=== PATIENT | female | born 1995 | race Caucasian/White ===

== ENCOUNTER 2018-03-21 17:44 | Emergency (ER) | payer OTHER ==
[~2018-03-21] VITALS: Ht 167.6 cm; Wt 74.8 kg
[2018-03-21 18:53] LABS: BILIRUBIN,URINE NEGATIVE (NEGATIVE); CLARITY,URINE SLIGHTLY CLOUDY; COLOR,URINE YELLOW; GLUCOSE, URINE (UA) NEGATIVE (NEGATIVE); KETONES,URINE 4+ (NEGATIVE); LEUKOCYTE ESTERASE ,URINE 3+ (NEGATIVE); NITRITE,URINE POSITIVE (NEGATIVE); PH,URINE 5 (5-9); PROTEIN,URINE 3+ (NEGATIVE); UROBILINOGEN,URINE NORMAL (NORMAL)
[2018-03-21 19:04] LABS: BACTERIA,URINE LARGE /HPF; RBC,URINE 25-50 /HPF; WBC,URINE >100 /HPF
[2018-03-21] MEDS ORDERED: ONDANSETRON 4 MG/2 ML (SDV) Z0FRAN IV PRN (19:15)
--- NOTE | 2018-03-21 19:21 | ED GU-Female ---
General Stated Complaint: FEVER Source: patient, spouse Exam Limitations: no limitations History of Present Illness Date Seen by Provider: Mar 21, 2018 Time Seen by Provider: 19:10 Initial Comments Patient presents to the ER by private conveyance with his significant other and chief complaint she had a fever 102 today and the past several days she's had some gripping pain around the top of her abdomen. She's had painful urination, weakness tiredness. Not sure when her last period is. 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 She vomited earlier today and still having some nausea. She has not taken anything for the pain. She's not seen anyone else for this. Allergies and Home Medications Allergies Coded Allergies: cat dander (Verified Allergy, Unknown, 03/21/18) nickel (Verified Allergy, Unknown, 03/21/18) Patient Home Medication List Home Medication List Reviewed: Yes Review of Systems Review of Systems Constitutional: chills; No diaphoresis; fever, malaise EENTM: No ear discharge, No ear pain Respiratory: No cough, No short of breath Cardiovascular: No chest pain, No edema Gastrointestinal: abdominal pain; No constipation, No diarrhea; nausea, vomiting Genitourinary: denies burning, denies discharge; dysuria, flank pain (Right) : No Musculoskeletal: see HPI Past Eqsntgm-Piobbo-Vlwzsb Hx Patient Social History Alcohol Use: Denies Use Recreational Drug Use: No Smoking Status: Never a Smoker Physical Exam Vital Signs Vital Signs - First Documented 03/21/18 19:54 O2 Flow Rate 98.00 Capillary Refill : Height, Weight, BMI Height: '" Weight: lbs. oz. kg; BMI Method: General Appearance: WD/WN, mild distress HEENT: PERRL/EOMI, normal ENT inspection Neck: non-tender, full range of motion Cardiovascular: normal peripheral pulses, regular rate, rhythm, tachycardia Respiratory: no respiratory distress, no accessory muscle use Gastrointestinal: normal bowel sounds, non tender, soft Focused Exam Lactate Level 03/21/18 19:59: Lactic Acid Level 0.61 Lactic Acid Level Laboratory Tests Test 03/21/18 19:59 Lactic Acid Level 0.61 MMOL/L (0.50-2.00) Progress/Results/Core Measures Suspected Sepsis SIRS Temperature: Pulse: Respiratory Rate: Laboratory Tests 03/21/18 19:03: White Blood Count 11.4H Blood Pressure / Mean: 03/21/18 19:59: Lactic Acid Level 0.61 Laboratory Tests 03/21/18 19:03: Creatinine 0.77, INR Comment 1.2, Platelet Count 191, Total Bilirubin 0.7 Results/Orders Lab Results Laboratory Tests Test 03/21/18 18:45 03/21/18 19:03 03/21/18 19:59 Range/Units Urine Color YELLOW Urine Clarity SLIGHTLY CLOUDY Urine pH 5 5-9 Urine Specific [place] 1.015 L 1.016-1.022 Urine Protein 3+ H NEGATIVE Urine Glucose (UA) NEGATIVE NEGATIVE Urine Ketones 4+ H NEGATIVE Urine Nitrite POSITIVE H NEGATIVE Urine Bilirubin NEGATIVE NEGATIVE Urine Urobilinogen NORMAL NORMAL MG/DL Urine Leukocyte Esterase 3+ H NEGATIVE Urine RBC (Auto) 5+ H NEGATIVE Urine RBC 25-50 H /HPF Urine WBC >100 H /HPF Urine Squamous Epithelial Cells 2-5 /HPF Urine Crystals NONE /LPF Urine Bacteria LARGE H /HPF Urine Casts NONE /LPF Urine Mucus NEGATIVE /LPF Urine Culture Indicated YES White Blood Count 11.4 H 4.3-11.0 10^3/uL Red Blood Count 4.28 L 4.35-5.85 10^6/uL Hemoglobin 12.7 11.5-16.0 G/DL Hematocrit 37 35-52 % Mean Corpuscular Volume 87 80-99 FL Mean Corpuscular Hemoglobin 30 25-34 PG Mean Corpuscular Hemoglobin Concent 34 32-36 G/DL Red Cell Distribution Width 13.3 10.0-14.5 % Platelet Count 191 130-400 10^3/uL Mean Platelet Volume 11.9 H 7.4-10.4 FL Neutrophils (%) (Auto) 84 H 42-75 % Lymphocytes (%) (Auto) 6 L 12-44 % Monocytes (%) (Auto) 10 0-12 % Eosinophils (%) (Auto) 0 0-10 % Basophils (%) (Auto) 0 0-10 % Neutrophils # (Auto) 9.6 H 1.8-7.8 X 10^3 Lymphocytes # (Auto) 0.7 L 1.0-4.0 X 10^3 Monocytes # (Auto) 1.1 H 0.0-1.0 X 10^3 Eosinophils # (Auto) 0.0 0.0-0.3 10^3/uL Basophils # (Auto) 0.0 0.0-0.1 10^3/uL Neutrophils % (Manual) 69 % Lymphocytes % (Manual) 9 % Monocytes % (Manual) 5 % Eosinophils % (Manual) 0 % Basophils % (Manual) 0 % Band Neutrophils 17 % Blood Morphology Comment NORMAL Prothrombin Time 14.8 H 12.2-14.7 SEC INR Comment 1.2 0.8-1.4 Activated Partial Thromboplast Time 39 H 24-35 SEC Sodium Level 133 L 135-145 MMOL/L Potassium Level 3.3 L 3.6-5.0 MMOL/L Chloride Level 98 98-107 MMOL/L Carbon Dioxide Level 24 21-32 MMOL/L Anion Gap 11 5-14 MMOL/L Blood Urea Nitrogen 8 7-18 MG/DL Creatinine 0.77 0.60-1.30 MG/DL Estimat Glomerular Filtration Rate > 60 BUN/Creatinine Ratio 10 Glucose Level 108 H 70-105 MG/DL Calcium Level 9.9 8.5-10.1 MG/DL Corrected Calcium 9.5 8.5-10.1 MG/DL Total Bilirubin 0.7 0.1-1.0 MG/DL Aspartate Amino Transf (AST/SGOT) 24 5-34 U/L Alanine Aminotransferase (ALT/SGPT) 23 0-55 U/L Alkaline Phosphatase 93 40-136 U/L Total Protein 7.7 6.4-8.2 GM/DL Albumin 4.5 3.2-4.5 GM/DL Lactic Acid Level 0.61 0.50-2.00 MMOL/L My Orders Orders - ADRY DUPONT Ua Culture If Indicated (03/21/18 18:46) Urine Culture (03/21/18 18:45) Cbc With Automated Diff (03/21/18 19:14) Comprehensive Metabolic Panel (03/21/18 19:14) Blood Culture (03/21/18 19:14) Urinalysis (03/21/18 19:14) Urine Culture (03/21/18 19:14) Protime With Inr (03/21/18 19:14) Partial Thromboplastin Time (03/21/18 19:14) Saline Lock/Iv-Start (03/21/18 19:14) Saline Lock/Iv-Start (03/21/18 19:14) Vital Signs Adult Sepsis Patie Q15M (03/21/18 19:14) Ondansetron Injection (Zofran Injectio (03/21/18 19:15) O2 (03/21/18 19:14) Remove Rings In Anticipation O (03/21/18 19:14) Lactic Acid Analyzer (03/21/18 19:14) Ns Iv 1000 Ml (Sodium Chloride 0.9%) (03/21/18 19:15) Ceftriaxone For Iv Use (Rocephin For I (03/21/18 19:15) Ketorolac Injection (Toradol Injection) (03/21/18 19:15) Hcg,Qualitative Urine (03/21/18 19:21) Ct Abdomen/Pelvis Wo (03/21/18 19:21) Manual Differential (03/21/18 19:03) Medications Given in ED Current Medications Medications Dose Ordered Sig/Carmen Route Start Time Stop Time Status Last Admin Dose Admin Ceftriaxone Sodium 1000 mg/ Sodium Chloride 60 ml @ 100 mls/hr ONCE ONCE IV 03/21/18 19:15 03/21/18 19:50 DC 03/21/18 19:40 100 MLS/HR Ketorolac Tromethamine 15 mg ONCE ONCE IVP 03/21/18 19:15 03/21/18 19:17 DC 03/21/18 19:37 15 MG Sodium Chloride 1,500 ml @ 1,500 mls/hr ONCE ONCE IV 03/21/18 19:15 03/21/18 20:14 DC 03/21/18 19:39 1,500 MLS/HR Vital Signs/I&O 03/21/18 03/21/18 03/21/18 18:45 18:45 19:54 Temp 100.6 100.6 100.6 Pulse 111 111 111 Resp 18 18 18 B/P (MAP) 112/63 (79) 112/63 112/63 (79) Pulse Ox 98 98 98 O2 Flow Rate 98.00 Capillary Refill : Progress Note #1: Time: 19:20 Progress Note Septic workup given her tachycardia and fever. Looks like the urinalysis she has a little red blood cells and white blood cells so we'll look for pyelonephritis versus possible kidney stone. No history of kidney stones we'll get a CT of her abdomen without contrast. We'll give her some Toradol and Zofran for her discomfort and a 1-1/2 L 20 mL/kg bolus of normal saline and reexamined. Rocephin 1 g IV. Progress Note #2: Time: 20:58 Progress Note The patient is feeling much better. Her nausea is gone. Her pain is much improved almost gone now. She's been able to urinate. She still has about 300 cc of saline to go and were going to let her leave with Keflex, Zofran and return precautions. Will she was initially septic by her vital signs her heart rate is down in the 90s and she is feeling much better and would like to go home as opposed to staying in the hospital. An observation stay is offered but declined. Diagnostic Imaging Diagonstic Imaging: CT (c/o contrst) Plain Films/CT/US/NM/MRI: abdomen, pelvis Comments VIA [facility]. [place], [place] NAME: MERLIN MOHR [facility] REC#: [id number] PT STATUS: REG ER : 1995 PHYSICIAN: ADRY DUPONT MD ADMIT DATE: 03/21/18/ER Draft Date of Exam:03/21/18 CT ABDOMEN/PELVIS WO PROCEDURE: CT abdomen and pelvis without contrast. TECHNIQUE: Multiple contiguous axial images were obtained through the abdomen and pelvis without the use of intravenous contrast. INDICATION: Fever. Right posterior lateral torso pain. COMPARISON: None. FINDINGS: Lung bases are clear. The liver, gallbladder, pancreas, spleen, collecting systems and bladder are negative on this noncontrast exam. The reproductive structures are grossly normal. Normal appendix. No free intraperitoneal air or fluid. No lymphadenopathy. No evidence of bowel obstruction. Osseous structures are unremarkable. IMPRESSION: No acute CT findings in the abdomen or pelvis. Dictated on workstation # [id number] Dict: 03/21/182031 Trans: 03/21/182037 [facility] [id number] Interpreted by: RAMÓN GOMEZ MD Electronically signed by: Reviewed: Reviewed by Me Departure Impression Primary Impression: Acute cystitis Qualified Codes: N30.01 - Acute cystitis with hematuria Additional Impressions: Sepsis Qualified Codes: A41.9 - Sepsis, unspecified organism Hypokalemia due to loss of potassium Disposition: 01 HOME, SELF-CARE Condition: Improved Departure-Patient Inst. Decision time for Depature: 21:00 Patient Instructions: Acute Cystitis (DC) Add. Discharge Instructions: Drink lots of fluids. Caffeine is okay. Use some sports drinks help replace the electrolytes that are missing. If you have nausea you can take the Zofran 1 tablet every 6 hours as needed. Tomorrow product picker the Keflex and start taking one capsule twice a day for the next 10 days. For pain or misery you can use the Tylenol 1000 mg every 8 hours or ibuprofen 800 mg every 8 hours. Should not be having much fever or misery after 3-4 days of antibiotics. Return to the ER if you have new or worrisome symptoms or you cannot control your nausea or pain. Scripts Ondansetron (Ondansetron Odt) 4 Mg Tab.rapdis 4 MG PO Q6H PRN for NAUSEA/VOMITING for 7 Days, #8 TAB 0 Refills Prov: ADRY DUPONT 03/21/18 Cephalexin (Cephalexin) 500 Mg Tablet 500 MG PO BID for 10 Days, #20 TAB 0 Refills Prov: ADRY DUPONT 03/21/18 Work/School Note: Work Release Form Date Seen in the Emergency Department: Mar 21, 2018 Return to Work: Mar 24, 2018 Restrictions: No Restrictions ADRY DUPONT Mar 21, 2018 19:21
[2018-03-21 19:23] LABS: BASOPHILS % (AUTO) 0 % (0-10); EOSINOPHILS % (AUTO) 0 % (0-10); HEMATOCRIT 37 % (35-52); HEMOGLOBIN 12.7 G/DL (11.5-16.0); LYMPHOCYTES # (AUTO) 0.7 X 10^3 (1.0-4.0); LYMPHOCYTES % (AUTO) 6 % (12-44); MEAN CORPUSCULAR HEMOGLOBIN 30 PG (25-34); MEAN CORPUSCULAR HGB CONC 34 G/DL (32-36); MEAN CORPUSCULAR VOLUME 87 FL (80-99); MEAN PLATELET VOLUME 11.9 FL (7.4-10.4); MONOCYTES # (AUTO) 1.1 X 10^3 (0.0-1.0); MONOCYTES % (AUTO) 10 % (0-12); NEUTROPHILS # (AUTO) 9.6 X 10^3 (1.8-7.8); NEUTROPHILS % (AUTO) 84 % (42-75); PLATELET COUNT 191 10^3/uL (130-400); RED BLOOD COUNT 4.28 10^6/uL (4.35-5.85); RED CELL DISTRIBUTION WIDTH 13.3 % (10.0-14.5); WHITE BLOOD COUNT 11.4 10^3/uL (4.3-11.0)
[2018-03-21 19:30] LABS: INR 1.2 (0.8-1.4); PROTHROMBIN TIME PATIENT 14.8 SEC (12.2-14.7)
[2018-03-21] MEDS: KETOROLAC 30 MG/ML VIAL IVP ONE (19:37)
[2018-03-21] MEDS: NS IV 1000 ML 1,500 ML IV ONE (19:39)
[2018-03-21 19:40] LABS: ALANINE AMINOTRANSFERASE 23 U/L (0-55); ALBUMIN 4.5 GM/DL (3.2-4.5); ALKALINE PHOSPHATASE 93 U/L (40-136); BILIRUBIN,TOTAL 0.7 MG/DL (0.1-1.0); BUN/CREATININE RATIO 10; CALCIUM 9.9 MG/DL (8.5-10.1); CARBON DIOXIDE 24 MMOL/L (21-32); CHLORIDE 98 MMOL/L (98-107); CREATININE SERUM 0.77 MG/DL (0.60-1.30); GFR ESTIMATED > 60; GLUCOSE 108 MG/DL (70-105); POTASSIUM 3.3 MMOL/L (3.6-5.0); SODIUM 133 MMOL/L (135-145); TOTAL PROTEIN 7.7 GM/DL (6.4-8.2)
[2018-03-21] MEDS: cefTRIAXone FOR IV USE 1,000 MG in NS (IVPB) 50 ML IV ONE (19:40)
[2018-03-21 19:44] LABS: BAND NEUTROPHILS 17 %; EOSINOPHILS % (MANUAL) 0 %; LYMPHOCYTES % (MANUAL) 9 %; MONOCYTES % (MANUAL) 5 %; NEUTROPHILS % (MANUAL) 69 %
[2018-03-21 19:45] LABS: BASOPHILS % (MANUAL) 0 %; RBC MORPH NORMAL
[2018-03-21 19:54] VITALS: BP 112/63
--- NOTE | 2018-03-21 20:39 | Diagnostic Imaging Report ---
PROCEDURE: CT abdomen and pelvis without contrast. TECHNIQUE: Multiple contiguous axial images were obtained through the abdomen and pelvis without the use of intravenous contrast. INDICATION: Fever. Right posterior lateral torso pain. COMPARISON: None. FINDINGS: Lung bases are clear. The liver, gallbladder, pancreas, spleen, collecting systems and bladder are negative on this noncontrast exam. The reproductive structures are grossly normal. Normal appendix. No free intraperitoneal air or fluid. No lymphadenopathy. No evidence of bowel obstruction. Osseous structures are unremarkable. IMPRESSION: No acute CT findings in the abdomen or pelvis. Dictated by: Dictated on workstation # [id number]
[2018-03-21] MEDS ORDERED: CEPH500T PO (21:02)
[2018-03-21] MEDS ORDERED: ONDA4TAB11 PO (21:02)
[2018-03-21 21:17] LABS: BILIRUBIN,URINE NEGATIVE (NEGATIVE); CLARITY,URINE CLEAR; COLOR,URINE YELLOW; GLUCOSE, URINE (UA) NEGATIVE (NEGATIVE); KETONES,URINE 3+ (NEGATIVE); LEUKOCYTE ESTERASE ,URINE 3+ (NEGATIVE); NITRITE,URINE POSITIVE (NEGATIVE); PH,URINE 6.5 (5-9); PROTEIN,URINE NEGATIVE (NEGATIVE); UROBILINOGEN,URINE NORMAL (NORMAL)
[2018-03-21 21:24] LABS: BACTERIA,URINE FEW /HPF; RBC,URINE 0-2 /HPF; SQUAMOUS EPITHELIAL CELL,UR 0-2 /HPF; WBC,URINE 25-50 /HPF
[2018-03-21 23:50] VITALS: BP 104/59
== END 2018-03-21 21:23 | disposition home or self-care (01) ==
LOC: ER 17:45
DX: N30.00 Acute cystitis without hematuria (principal); A41.9 Sepsis, unspecified organism; E87.6 Hypokalemia; R50.9 Fever, unspecified
CPT/HCPCS: 36415; 74176; 80053; 81000; 83605; 84703; 85007; 85027; 85610; 85730; 87040; 87077; 87088; 87186; 96365; 96375

== ENCOUNTER → 2018-03-26 | Outpatient (CLI) | payer OTHER ==
[~2018-03-26] MED LIST: CEPH500T PO; ONDA4TAB11 PO
--- NOTE | 2018-03-26 08:52 | Diagnostic Imaging Report ---
PROCEDURE: US Gallbladder. TECHNIQUE: Multiple Real-time grayscale images were obtained over the right upper quadrant in various projections. INDICATION: Right upper quadrant/epigastric pain. FINDINGS: Grayscale imaging of the gallbladder reveals no intraluminal filling defect. There is no gallbladder wall thickening or pericholecystic fluid. No intra or extrahepatic biliary ductal dilatation is identified. The visualized portions of the pancreas, right kidney, abdominal aorta, and inferior vena cava reveal no abnormality. There is no evidence of significant free fluid. IMPRESSION: Unremarkable gallbladder ultrasound. Dictated by: Dictated on workstation # [id number]
== END ==
LOC: RAD 08:01
PROVIDERS: ATTEND Family Medicine
DX: R10.11 Right upper quadrant pain (principal); R10.13 Epigastric pain
CPT/HCPCS: 76705

== ENCOUNTER 2019-12-14 09:28 | Emergency (ER) | payer OTHER ==
[~2019-12-14] VITALS: Ht 167 cm; Wt 77.2 kg
[2019-12-14] MEDS ORDERED: KETOROLAC 60 MG/2 ML VIAL ONE (09:29)
[2019-12-14] MEDS ORDERED: fentaNYL INJECTION 100 MCG/2 ML AMP ONE (09:29)
[2019-12-14 09:30] VITALS: BP 113/55
--- OUTSIDE RECORDS SUMMARY | 2019-12-14 09:34 | XMS REPORT ---
Author Author Silvia SEVERINO Organization [employer] Address Unknown Phone Unavailable Care Team Providers Care Four H Agent Name Role Phone DANNIE SEVERINO CP Unavailable Allergies, Adverse Reactions, Alerts Substance Reaction Event Type N.K.D.A. 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 Medications Medication Code System Code Instructions Start Date End Date Status Dosage Indocin [facility] [address]-21 50 MG Orally Twice a day Jun 29, 2015 Jul 13, 2015 1 capsule with food or milk PredniSONE [facility] [address]-72 20 MG Orally 2 times a day JunJul 04, 2015 as directed Ortho Tri-Cyclen (28) [facility] [address]-59 0.18/0.215 /0.25 MG-35 MCG Orally Once a day 1 tablet Procedures Procedure Coding System Code Date TORADOL (IM) 60 MG/2ML (UP TO 15 MG) CPT-4 J1885 Jun 29, 2015 THER/PROPH/DIAG INJ, SC/IM CPT-4 54417 Jun Office Visit, New Pt., Level 3 CPT-4 32245 D 2014 Vital Signs Date/Time: Jun 29, 2015 Temperature 97.7 F Weight 156.3 lbs Height 69.0 in BMI 23.08 Index Blood Pressure Diastolic 70 mmHg Blood Pressure Systolic 112 mmHg Cardiac Monitoring Heart Rate 72 bpm Results No Known Results Summary Purpose [employer] Submission
--- OUTSIDE RECORDS SUMMARY | 2019-12-14 09:34 | XMS REPORT | Continuity of Care Document ---
Author Organization Unknown Address Unknown Phone Unavailable Allergies Active Description Code Type Severity Reaction Onset Reported/Identified Relationship to Patient Clinical Status Yes cat dander [id number] Drug Allerg y Unknown N/A 03/21/2018 Yes nickel [id number] Drug Allergy Unknown N/A 03/21/2018 Medications There is no data. Problems Date Dx Coded Attending Type Code Diagnosis Diagnosed By 03/21/2018 KIAH MARIE, ADRY Santo Ot A41. 9 SEPSIS, UNSPECIFIED ORGANISM 03/21/2018 KIAH MARIE, ADRY Santo Ot E87. 6 HYPOKALEMIA 03/21/2018 KIAH MARIE, ADRY J Ot N30. 00 ACUTE CYSTITIS WITHOUT HEMATURIA 03/21/2018 ADRY DUPONT MD Ot R50. 9 FEVER, UNSPECIFIED 03/24/2018 KIAH MARIE, ADRY J Ot A41. 9 SEPSIS, UNSPECIFIED ORGANISM 03/24/2018 KIAH MARIE, ADRY J Ot E87. 6 HYPOKALEMIA 03/24/2018 KIAH MARIE, ADRY J Ot N30. 00 ACUTE CYSTITIS WITHOUT HEMATURIA 03/24/2018 KIAH MARIE, ADRY J Ot R50. 9 FEVER, UNSPECIFIED 03/27/2018 GELLENDER DO, MARCIA A Ot R10.11 RIGHT UPPER QUADRANT PAIN 03/27/2018 GELLENDER DO, MARCIA A Ot R10.13 EPIGASTRIC PAIN 04/09/2018 GELLENDER DO, MARCIA A Ot R10.11 RIGHT UPPER QUADRANT PAIN 04/09/2018 GELLENDER DO, MARCIA A Ot R10.13 EPIGASTRIC PAIN Procedures There is no data. Results Test Result Range Complete urinalysis with reflex to cultu re - 03/21/18 18:45 Urine color determination YELLOW NRG Urine clarity determination SLIGHTLY CLOUDY NRG Urine pH measurement by test strip 5 5-9 Specific gravity of urine by test strip 1.015 1.016-1.022 Urine protein assay by test strip, semi-quantitative 3+ NEGATIVE Urine glucose detection by automated test strip NE GATIVE NEGATIVE Erythrocytes detection in urine sediment by light micr oscopy 5+ NEGATIVE Urine ketones detection by automated test strip 4+ NEGATIVE Urine nitrite detection by test strip POSITIVE NEGATIVE Urine total bilirubin detection by test strip NEGA TIVE NEGATIVE Urine urobilinogen measurement by automated test strip (mass/volume) NORMAL NORMAL Urine leukocyte esterase detection by dipstick 3+ NEGATIVE Automated urine sediment erythrocyte cou nt by microscopy (number/high power field) [HPF] NRG Automated urine sediment leukocyte count by microscopy (number/high power field) > [HPF] NRG Bacteria detection in urine sediment by light microsco py LARGE NRG Squamous epithelial cells detection in u rine sediment by light microscopy 2-5 NRG Crystals detection in urine sediment by light microsco py NONE NRG Casts detection in urine sediment by light microscopy NONE NRG Mucus detection in urine sediment by light microscopy NEGATIVE NRG Complete urinalysis with reflex to culture YES NRG Bacterial urine culture - 03/21/18 18:45 Bacterial urine culture [id number] NRG COLONY COUNT >100,000/ML NRG FTX;REPORTABLE RML SENSITIVITY REPORED 03/23/18 08:0 5 NRG RML Sensitivity Panel - 03/21/18 18:45 Gentamicin susceptibility test by minimum inhibitory c oncentration <= NRG Trimethoprim/sulfamethoxazole susceptibi lity test by minimum inhibitoryconcentration > NRG Levofloxacin susceptibility test by minimum inhibitory concentration <= NRG Ampicillin susceptibility test by minimum inhibitory c oncentration > NRG Cefazolin susceptibility test by minimum inhibitory co ncentration 2 NRG Ceftriaxone susceptibility test by minimum inhibitory concentration <= NRG Ciprofloxacin susceptibility test by minimum inhibitor y concentration <= NRG Meropenem susceptibility test by minimum inhibitory co ncentration <= NRG Nitrofurantoin susceptibility test by mi nimum inhibitory concentration <= NRG Amoxicillin and clavulanate potassium susc ANNIKA = NRG Complete blood count (CBC) with automate d white blood cell (WBC) differential - 03/21/18 19:03 Blood leukocytes automated count (number/volume) 11.4 10*3/uL 4.3-11.0 Blood erythrocytes automated count (number/volume) 4.28 10*6/uL 4.35-5.85 Venous blood hemoglobin measurement (mass/volume) 12.7 g/dL 11.5-16.0 Blood hematocrit (volume fraction) 37 % 35-52 Automated erythrocyte mean corpuscular volume 87 [ foz_us] 80-99 Automated erythrocyte mean corpuscular h emoglobin (mass per erythrocyte) 30 pg 25-34 Automated erythrocyte mean corpuscular h emoglobin concentration measurement (mass/volume) 34 g/dL 32-36 Automated erythrocyte distribution width ratio 13. 3 % 10.0- 14.5 Automated blood platelet count (count/volume) 191 10*3/uL 130-400 Automated blood platelet mean volume measurement 11.9 [foz_us] 7.4-10.4 Automated blood neutrophils/100 leukocytes 84 % 42-75 Automated blood lymphocytes/100 leukocytes 6 % 12-44 Blood monocytes/100 leukocytes 10 % 0-12 Automated blood eosinophils/100 leukocytes 0 % 0-10 Automated blood basophils/100 leukocytes 0 % 0-10 Blood neutrophils automated count (number/volume) 9.6 10*3 1.8-7.8 Blood lymphocytes automated count (number/volume) 0.7 10*3 1.0-4.0 Blood monocytes automated count (number/volume) 1. 1 10*3 0.0-1.0 Automated eosinophil count 0.0 10*3/uL 0 .0-0.3 Automated blood basophil count (count/volume) 0.0 10*3/uL 0.0-0.1 PT panel in platelet poor plasma by coag ulation assay - 03/21/18 19:03 Prothrombin time (PT) in platelet poor plasma by coagu lation assay 14.8 s 12.2-14.7 INR in platelet poor plasma or blood by coagulation as say 1.2 0.8-1.4 Activated partial thromboplastin time (a PTT) in platelet poor plasma bycoagulation assay - 03/21/18 19:03 Activated partial thromboplastin time (a PTT) in platelet poor plasma bycoagulation assay 39 s 24-35 Comprehensive metabolic panel - 03/21/18 19:03 Serum or plasma sodium measurement (moles/volume) 133 mmol/L 135-145 Serum or plasma potassium measurement (moles/volume) 3.3 mmol/L 3.6-5.0 Serum or plasma chloride measurement (moles/volume) 98 mmol/L 98-107 Carbon dioxide 24 mmol/L 21-32 Serum or plasma anion gap determination (moles/volume) 11 mmol/L 5-14 Serum or plasma urea nitrogen measurement (mass/volume ) 8 mg/dL 7-18 Serum or plasma creatinine measurement (mass/volume) 0.77 mg/dL 0.60-1.30 Serum or plasma urea nitrogen/creatinine mass ratio 10 NRG Serum or plasma creatinine measurement w ith calculation of estimated glomerular filtration rate > NRG Serum or plasma glucose measurement (mass/volume) 108 mg/dL 70-105 Serum or plasma calcium measurement (mass/volume) 9.9 mg/dL 8.5-10.1 Serum or plasma total bilirubin measurement (mass/volu me) 0.7 mg/dL 0.1-1.0 Serum or plasma alkaline phosphatase papo surement (enzymatic activity/volume) 93 U/L 40-136 Serum or plasma aspartate aminotransfera se measurement (enzymatic activity/volume) 24 U/L 5-34 Serum or plasma alanine aminotransferase measurement (enzymatic activity/volume) 23 U/L 0-55 Serum or plasma protein measurement (mass/volume) 7.7 g/dL 6.4-8.2 Serum or plasma albumin measurement (mass/volume) 4.5 g/dL 3.2-4.5 CALCIUM CORRECTED 9.5 mg/dL 8.5-10.1 Blood manual differential performed dete ction - 03/21/18 19:03 Blood monocytes/100 leukocytes 5 % NRG Manual blood segmented neutrophils/100 leukocytes 69 % NRG Blood band neutrophils/100 leukocytes 17 % NRG Manual blood lymphocytes/100 leukocytes 9 % NRG Manual eosinophils/100 leukocytes in nose 0 % NRG Manual blood basophils/100 leukocytes 0 % NRG Blood erythrocyte morphology finding identification NORMAL NRG Bacterial blood culture - 03/21/18 19:42 Bacterial blood culture NG NRG Blood lactic acid measurement (moles/vol ume) - 03/21/18 19:59 Blood lactic acid measurement (moles/volume) 0.61 mmol/L 0.50-2.00 Bacterial blood culture - 03/21/18 19:59 Bacterial blood culture NG NRG Urine beta human chorionic gonadotropin (hCG) measurement - 03/21/18 21:07 Urine beta human chorionic gonadotropin (hCG) measurem ent NEGATIVE NEGATIVE Complete urinalysis with reflex to cultu re - 03/21/18 21:07 Urine color determination YELLOW NRG Urine clarity determination CLEAR NR G Urine pH measurement by test strip 6.5 5-9 Specific gravity of urine by test strip 1.010 1.016-1.022 Urine protein assay by test strip, semi-quantitative NEGATIVE NEGATIVE Urine glucose detection by automated test strip NE GATIVE NEGATIVE Erythrocytes detection in urine sediment by light micr oscopy 2+ NEGATIVE Urine ketones detection by automated test strip 3+ NEGATIVE Urine nitrite detection by test strip POSITIVE NEGATIVE Urine total bilirubin detection by test strip NEGA TIVE NEGATIVE Urine urobilinogen measurement by automated test strip (mass/volume) NORMAL NORMAL Urine leukocyte esterase detection by dipstick 3+ NEGATIVE Automated urine sediment erythrocyte cou nt by microscopy (number/high power field) [HPF] NRG Automated urine sediment leukocyte count by microscopy (number/high power field) [HPF] NRG Bacteria detection in urine sediment by light microsco py FEW NRG Squamous epithelial cells detection in u rine sediment by light microscopy 0-2 NRG Crystals detection in urine sediment by light microsco py NONE NRG Casts detection in urine sediment by light microscopy NONE NRG Mucus detection in urine sediment by light microscopy NEGATIVE NRG Complete urinalysis with reflex to culture NO NRG Bacterial urine culture - 03/21/18 21:07 Bacterial urine culture SEE COMMEN NRG COLONY COUNT . NRG Encounters ACCT No. Visit Date/Time Discharge Status Pt. Type Provider Facility Loc./Unit Complaint [id number] 03/26/2018 08:01:00 018 23:59:59 CLS Outpatient MARCIA BELLO DO [facility] RAD RUQ PAIN [id number] 03/21/2018 17:45:00 018 21:23:00 DIS Outpatient ADRY DUPONT MD [facility] ER FEVER
--- OUTSIDE RECORDS SUMMARY | 2019-12-14 09:34 | XMS REPORT ---
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
--- OUTSIDE RECORDS SUMMARY | 2019-12-14 09:34 | XMS REPORT ---
Author Author Silvia SEVERINO Organization [employer] Address Unknown Phone Unavailable Care Team Providers Care Community Chest Officer Name Role Phone DANNIE SEVERINO CP Unavailable Allergies, Adverse Reactions, Alerts Substance Reaction Event Type N.K.D.A. 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 Medications Medication Code System Code Instructions Start Date End Date Status Dosage PredniSONE [facility] [address]-89 20 MG Orally 2 times a day JunJul 11, 2015 as directed Indocin [facility] [address]-72 50 MG Orally Twice a day Jun 29, 2015 Aug 05, 2015 1 capsule with food or milk Procedures Procedure Coding System Code Date Office Visit, Est Pt., Level 3 CPT-4 89896 D 2014 Vital Signs Date/Time: Jul 08, 2015 Temperature 98.4 F Weight 155.6 lbs Height 69.0 in BMI 22.98 Index Blood Pressure Diastolic 70 mmHg Blood Pressure Systolic 108 mmHg Cardiac Monitoring Heart Rate 70 bpm Results No Known Results Summary Purpose [employer] Submission
[2019-12-14] MEDS ORDERED: KETOROLAC 60 MG/2 ML VIAL IM STA (09:36)
[2019-12-14] MEDS ORDERED: fentaNYL INJECTION 100 MCG/2 ML AMP IM STA (09:36)
[2019-12-14] MEDS ORDERED: SILVER SULFADIAZINE 50 GM CREAM ONE (09:53)
[2019-12-14] MEDS ORDERED: IBUP-1780 PO (09:57)
[2019-12-14] MEDS ORDERED: SILV20CR14 TP (09:57)
[2019-12-14] MEDS ORDERED: HYDR-83 PO (09:57)
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
[2019-12-15] MEDS ORDERED: SILVER SULFADIAZINE 50 GM CREAM TOP SCH (09:00)
== END 2019-12-14 10:09 | disposition home or self-care (01) ==
LOC: EDUNIT# 09:28 → ER 09:30
DX: T22.211A Burn of second degree of right forearm, initial encounter (principal); T23.201A Burn of second degree of right hand, unspecified site, initial encounter; T23.111A Burn of first degree of right thumb (nail), initial encounter; X12.XXXA Contact with other hot fluids, initial encounter; Y92.59 Other trade areas as the place of occurrence of the external cause
CPT/HCPCS: 99284